=== PATIENT | female | born 1985 | race American Indian/Alaskan Native ===

== ENCOUNTER 2017-04-28 13:39 | Outpatient (CLI) | payer OTHER ==
--- NOTE | 2017-05-02 08:49 | Mammography Report ---
Screening mammogram: Routine views demonstrate a generally fatty replaced breast. There is a focal asymmetry however identified in the upper outer right breast. Findings not otherwise remarkable. CAD used. Impression: Right breast asymmetry. Recommendation: Prior exams been requested for comparison. Recommendations will be made on final report. BI-RADS CATEGORY: 0 = Needs additional imaging evaluation ACR BI-RADS MAMMOGRAPHIC CODES: 0 = Needs additional imaging evaluation; 1 = Negative; 2 = Benign; 3 = Probably benign; 4 = Suspicious; 5 = Malignant; 6 = Known biopsy-proven malignancy COMMENT: 1. Dense breast tissue, i.e., adenosis, fibrocystic changes, etc., may obscure an underlying neoplasm. 2. Approximately 10% of cancers are not detected with mammography. 3. A negative mammography report should not delay biopsy if a clinically suspicious mass is present. A
== END 2017-04-28 13:40 | disposition home or self-care (01) ==
LOC: SPVWC 13:39
PROVIDERS: ATTEND Obstetrics & Gynecology
DX: Z12.31 Encounter for screening mammogram for malignant neoplasm of breast (principal)
CPT/HCPCS: 77067; G0202

== ENCOUNTER 2017-05-29 11:02 | Outpatient (CLI) | payer OTHER ==
--- NOTE | 2017-05-29 12:11 | Mammography Report ---
Right mammogram and right breast ultrasound: Patient recalled for asymmetry. CC and lateral compression images demonstrate a partially circumscribed area of asymmetry in the lateral breast which may represent an area of slightly elongated asymmetry in the central breast on the lateral projection. No calcifications or other findings. Ultrasound of the lateral breast demonstrates in the 11:00 location a 3.4 mm circumscribed echolucency 4 cm from the nipple and a similar finding measuring 2.8 mm 11 cm from the nipple. No solid masses and no areas of architectural distortion identified. Impression: No suspicious findings. Probably benign right breast asymmetry. Recommendation: Repeat mammogram in 6 months to confirm stability. BI-RADS CATEGORY: 3 = Probably benign ACR BI-RADS MAMMOGRAPHIC CODES: 0 = Needs additional imaging evaluation; 1 = Negative; 2 = Benign; 3 = Probably benign; 4 = Suspicious; 5 = Malignant; 6 = Known biopsy-proven malignancy COMMENT: 1. Dense breast tissue, i.e., adenosis, fibrocystic changes, etc., may obscure an underlying neoplasm. 2. Approximately 10% of cancers are not detected with mammography. 3. A negative mammography report should not delay biopsy if a clinically suspicious mass is present.
== END 2017-05-29 11:03 | disposition home or self-care (01) ==
LOC: SPVWC 11:02
PROVIDERS: ATTEND Obstetrics & Gynecology
DX: N64.89 Other specified disorders of breast (principal)

== ENCOUNTER 2018-01-01 12:04 | Outpatient (CLI) | payer OTHER ==
--- NOTE | 2018-01-01 12:44 | Mammography Report ---
RIGHT DIGITAL DIAGNOSTIC MAMMOGRAM with CAD: 01/01/18 12:04:00 CLINICAL: Follow-up and an outer asymmetry. COMPARISON:05/29/17 and 04/28/17 FINDINGS: The previously described asymmetry has resolved. The breast is mostly fatty. No mass, architectural distortion or suspicious calcifications. IMPRESSION: No mammographic evidence of malignancy. BI-RADS CATEGORY: Negative mammogram RECOMMENDATION: Return to routine mammographic screening. ACR BI-RADS MAMMOGRAPHIC CODES: 0 = Needs additional imaging evaluation; 1 = Negative; 2 = Benign; 3 = Probably benign; 4 = Suspicious; 5 = Malignant; 6 = Known biopsy-proven malignancy COMMENT: 1. Dense breast tissue, i.e., adenosis, fibrocystic changes, etc., may obscure an underlying neoplasm. 2. Approximately 10% of cancers are not detected with mammography. 3. A negative mammography report should not delay biopsy if a clinically suspicious mass is present. COMMENT: Patient follow-up letters are generated by our [employer] application.
== END 2018-01-01 12:05 | disposition home or self-care (01) ==
LOC: SPVWC 12:04
PROVIDERS: ATTEND Obstetrics & Gynecology
DX: R92.8 Other abnormal and inconclusive findings on diagnostic imaging of breast (principal)

== ENCOUNTER 2019-05-06 09:41 | Outpatient (CLI) | payer OTHER ==
--- NOTE | 2019-05-06 16:14 | Mammography Report ---
DIGITAL SCREENING MAMMOGRAM WITH CAD, 05/06/2019 INDICATION: Routine screening mammography. TECHNIQUE: Digital bilateral 2D mammography was obtained in the craniocaudal and mediolateral obliq ue projections. This examination was interpreted with the benefit of Computer-Aided Detection analysi s. COMPARISON: 04/28/2018 FINDINGS: Breast Density: The breasts are almost entirely fatty. There is no evidence of dominant mass, suspicious calcifications or architectural distortion in eithe r breast. IMPRESSION: No mammographic evidence of malignancy. Follow up recommendation: Routine yearly BI-RADS Category 1: Negative. A "normal" or negative report should not discourage follow up or biopsy of a clinically significant f inding. A written summary of these findings will be mailed to the patient. The patient will be entered into a mammography reporting system which will generate a reminder letter for the patient's next appointmen t at the appropriate interval. [employer] recommends yearly mammograms starting at age 40 and continuing as l dick as a woman is in good health. Breast MRI is recommended for women with an approximate 20-25% or greater lifetime risk of breast cancer, including women with a strong family history of breast or ova sudhir cancer or who have been treated for Hodgkin's disease. Signer Name: Vadim Garza MD Signed: 05/06/2019 4:09 PM Workstation Name: [id number]
== END 2019-05-06 09:42 | disposition home or self-care (01) ==
LOC: SPVWC 09:41
PROVIDERS: ATTEND Obstetrics & Gynecology
DX: Z12.31 Encounter for screening mammogram for malignant neoplasm of breast (principal)
CPT/HCPCS: 77067